=== PATIENT | female | born 1945 | race Caucasian/White ===

== ENCOUNTER 2017-10-30 16:03 | Emergency (ER) | payer MEDICARE, SELFPAY ==
[2017-10-30 16:04] VITALS: BP 194/100; PULSE 81; RESP 20; TEMP 36.2; O2SAT 99; BMI 33.2
--- NOTE | 2017-10-30 16:24 | ED.VISSUMM ---
- ER Visit Summary Date of Service: 10/30/17 Chief Complaint: Fall History of Present Illness: The patient is a 72 F who presents after falling 16 hours ago. She sustained periorbital ecchymosis. No loss of consciousness, no vision changes. No neck pain. She does not have a headache. She can move her eyes in all directions without any pain. She has no weakness. She has no confusion. Fall was mechanical, she tripped over a door tract. Physical Examination: Not appear in acute distress. Moist mucous membranes, there is periorbital ecchymosis, slight tenderness over the zygomatic arch. She is able to move her eye in all directions without any pain. She has a normal dental bite. No mandibular pain. No nasal bleeding or nasal septal hematoma. No C-spine tenderness supple neck. Regular rate and rhythm without any obvious murmurs Clear lungs bilaterally speaking in full sentences without any obvious respiratory distress Abdomen soft and nontender no guarding or rebound Moves all extremities without any difficulty or pain. Skin does not show any obvious rashes or lesions, no trauma. Alert oriented ?3 with no gross focal deficit Emergency Department Course and Treatment: Not see a reason for a CT, she did not hit her head and has no headache, has been 16 hours without any issues. She has periorbital ecchymosis without any evidence of entrapment. If there is a zygomatic fracture, there is no immediate treatment other than analgesia, and she says she has no pain unless she pushes on it. She is reassured, she understands that if she has any worsening to return however at this time she appears intact. Disposition: Discharged in stable condition Impression: Periorbital ecchymoses This note was generated with [employer] dictation software. It may contain incorrect words, spelling, and punctuation that were not noted in review of the chart prior to signing ED Disposition - Plan for ED Patient: Chief Complaint: Fall Referrals: [facility] Doctor,Out of [Primary Care Provider] -
--- NOTE | 2017-10-30 16:27 | ED.DCSUM_ITS ---
- ER Visit Summary Date of Service: 10/30/17 Chief Complaint: Fall History of Present Illness: The patient is a 72 F who presents after falling 16 hours ago. She sustained periorbital ecchymosis. No loss of consciousness, no vision changes. No neck pain. She does not have a headache. She can move her eyes in all directions without any pain. She has no weakness. She has no confusion. Fall was mechanical, she tripped over a door tract. Physical Examination: Not appear in acute distress. Moist mucous membranes, there is periorbital ecchymosis, slight tenderness over the zygomatic arch. She is able to move her eye in all directions without any pain. She has a normal dental bite. No mandibular pain. No nasal bleeding or nasal septal hematoma. No C-spine tenderness supple neck. Regular rate and rhythm without any obvious murmurs Clear lungs bilaterally speaking in full sentences without any obvious respiratory distress Abdomen soft and nontender no guarding or rebound Moves all extremities without any difficulty or pain. Skin does not show any obvious rashes or lesions, no trauma. Alert oriented ?3 with no gross focal deficit Emergency Department Course and Treatment: Not see a reason for a CT, she did not hit her head and has no headache, has been 16 hours without any issues. She has periorbital ecchymosis without any evidence of entrapment. If there is a zygomatic fracture, there is no immediate treatment other than analgesia, and she says she has no pain unless she pushes on it. She is reassured, she understands that if she has any worsening to return however at this time she appears intact. Disposition: Discharged in stable condition Impression: Periorbital ecchymoses This note was generated with [employer] dictation software. It may contain incorrect words, spelling, and punctuation that were not noted in review of the chart prior to signing ED Disposition - Plan for ED Patient: Chief Complaint: Fall Referrals: [facility] Doctor,Out of [Primary Care Provider] -
--- NOTE | 2017-10-30 16:29 | ED.DEP ---
ED Disposition - Plan for ED Patient: Disposition: Home or Assisted Living Chief Complaint: Fall Instructions: ED Mechanical Fall, ED Contusion Face Referrals: [facility] Doctor,Out of [Primary Care Provider] - 3-5 Days if not improving
[2017-10-30 16:54] VITALS: BP 131/69; PULSE 77; RESP 15; TEMP 36.4; O2SAT 98
== END 2017-10-30 16:57 | disposition home or self-care (01) ==
LOC: ED 16:48
PROVIDERS: Emergency Provider Emergency Medicine
DX: R23.3 Spontaneous ecchymoses (principal); W01.190A Fall on same level from slipping, tripping and stumbling with subsequent striking against furniture, initial encounter; Y93.9 Activity, unspecified; Y92.89 Other specified places as the place of occurrence of the external cause; Y99.9 Unspecified external cause status; I10 Essential (primary) hypertension
CPT/HCPCS: 99282

== ENCOUNTER → 2019-09-04 | Outpatient (CLI) | payer MEDICARE, SELFPAY ==
[2019-09-04 15:41] LABS: Anion Gap 4 (5-15); Chloride 104 mmol/L (98-107); Potassium 4.1 mmol/L (3.5-5.1); Sodium Level 137 mmol/L (136-145)
== END | disposition home or self-care (01) ==
LOC: MTLAB 13:18
PROVIDERS: PCP Family Medicine; Referring Provider Internal Medicine Pulmonary Disease; Visit Provider Internal Medicine Pulmonary Disease
DX: I10 Essential (primary) hypertension (principal); G47.10 Hypersomnia, unspecified
CPT/HCPCS: 36415; 80051

== ENCOUNTER → 2020-03-23 09:53 | Outpatient (CLI) | payer MEDICARE, SELFPAY ==
[2020-03-23 12:53] LABS: Anion Gap 7 (5-15); BUN 14 mg/dL (7-18); BUN/Creat Ratio 17.7 RATIO (10-20); Calcium,Total 8.9 mg/dL (8.5-10.1); Chloride 106 mmol/L (98-107); Cholesterol 219 mg/dL (200); Creatinine, Serum 0.79 mg/dL (0.55-1.02); EST Glomerular Filtration Rate 75 mL/min (>60); Est Glom Filt Rate - Afr Amer 91 mL/min (>60); Glucose 92 mg/dL (74-106); High Density Lipoprotein 57 mg/dL; Potassium 3.9 mmol/L (3.5-5.1); Sodium Level 141 mmol/L (136-145); Triglycerides 173 mg/dL; Very Low Density Lipoprotein 35 mg/dL (5-40)
== END ==
PROVIDERS: PCP Family Medicine; Visit Provider Family Medicine
DX: I10 Essential (primary) hypertension (principal)
CPT/HCPCS: 36415; 80048; 80061

== ENCOUNTER → 2020-06-17 11:12 | Outpatient (CLI) | payer MEDICARE, SELFPAY ==
[2020-06-17 15:52] LABS: CRP < 2.90 mg/L (0.0-3.0)
[2020-06-19 16:09] LABS: Endomysial Antibody IgA Negative (Negative)
[2020-06-19 20:49] LABS: Immunoglobulin A 189 mg/dL (64-422); t-Transglutaminase IgA <2 U/mL (0-3)
== END ==
PROVIDERS: PCP Family Medicine; Referring Provider Internal Medicine Gastroenterology; Visit Provider Internal Medicine Gastroenterology
DX: R19.7 Diarrhea, unspecified (principal)
CPT/HCPCS: 36415; 82784; 83516; 86140; 86255

== ENCOUNTER → 2020-09-21 10:21 | Outpatient (CLI) | payer MEDICARE, SELFPAY ==
[2020-09-21 13:03] LABS: Anion Gap 3 (5-15); BUN 17 mg/dL (7-18); BUN/Creat Ratio 18.6 RATIO (10-20); Calcium,Total 9.4 mg/dL (8.5-10.1); Chloride 106 mmol/L (98-107); Creatinine, Serum 0.92 mg/dL (0.55-1.02); EST Glomerular Filtration Rate 63 mL/min (>60); Est Glom Filt Rate - Afr Amer 77 mL/min (>60); Glucose 99 mg/dL (74-106); Potassium 4.2 mmol/L (3.5-5.1); Sodium Level 139 mmol/L (136-145)
== END ==
PROVIDERS: PCP Family Medicine; Visit Provider Family Medicine
DX: I10 Essential (primary) hypertension (principal)
CPT/HCPCS: 36415; 80048

== ENCOUNTER → 2020-09-23 10:56 | Outpatient (CLI) | payer MEDICARE, SELFPAY ==
--- NOTE | 2020-09-23 10:59 | BI_ITS ---
MAMMOGRAPHY - BILATERAL SCREENING REASON FOR EXAM: Female, 75 years old. Routine annual screening examination. PERTINENT HISTORY: Non-contributory. TECHNIQUE: Digital bilateral breast brennen (3D mammographic acquisition) in the CC and MLO projections. 2-D mediolateral oblique (MLO) and craniocaudad (CC) views of both breasts were obtained. CAD: Full Field Digital Mammography with Computer Added Detection was performed. COMPARISON: Comparison is made with prior outside examination dated 07/28/2015. FINDINGS: Breast Composition: There are scattered areas of fibroglandular density. There are no dominant masses or suspicious calcifications. Stable benign-appearing bilateral axillary lymph nodes. No other significant abnormalities are identified. There has been no significant change since the prior study. BI/SCRN MAMM (CAD)W/BRENNEN BILAT IMPRESSION: Stable bilateral screening mammogram. Yearly follow-up mammogram recommended. (A) ASSESSMENT CATEGORY: BIRADS Category 2: Benign. A letter regarding these results will be sent to the patient by the facility within 30 days. Approximately 10% of breast cancers are not detected by mammography. A normal mammogram should not delay biopsy of a clinically suspicious abnormality. [id number] Electronically Signed: Rock Davis MD at 14:45 EDT , Service support ,
--- NOTE | 2020-09-23 11:05 | BD_ITS ---
STUDY: DUAL ENERGY X-RAY ABSORPTIOMETRY / DXA REASON FOR EXAM: Female, 75 years old. Z780. The patient is postmenopausal. TECHNIQUE: Bone Mineral Density (BMD) measurements of lumbar spine and bilateral hips were obtained. COMPARISON: None. FINDINGS: Lumbar Spine (L1-L4): g/cm2 (1.385) / T-score (1.8) / Z-score (3.6) Findings are suggestive of normal bone density with a low fracture risk. Left Femur Total: g/cm2 (1.033) / T-score (0.2) / Z-score (2.0) Left Femoral Neck: g/cm2 (0.925) / T-score (-0.8) / Z-score (1.2) Right Femur Total: g/cm2 (1.011) / T-score (0.0) / Z-score (1.8) Right Femoral Neck: g/cm2 (0.924) / T-score (-0.8) / Z-score (1.2) BD/Dexa Bone Density Study IMPRESSION: The patient is considered normal as outlined below according to World [employer] Organization (WHO) criteria with a low fracture risk. Reference Information: The T-score is the number of standard deviations above or below the standard which is normal for young adults at their peak bone mineral density. The World Health Organization (WHO) interprets the T-scores as follows: Above -1 Normal bone density Between -1 and -2.5 Osteopenia Equal to / or below -2.5 Osteoporosis As a practical clinical guideline, osteopenia may be graded as follows: Mild -1 through -1.5 Moderate -1.6 through -2.0 Severe -2.1 through -2.4 The Z-score is the number of standard deviations above or below age-matched controls. A Z-score of less than -1.5 would be considered abnormal. References: 1. NIH Osteoporosis and Related Bone Diseases www osteo.org 2. International Society for Clinical Densitometry www iscd.org 3. National Osteoporosis Foundation www nof.org Electronically Signed: Rock Davis MD at 13:08 EDT , Service support ,
== END ==
PROVIDERS: PCP Family Medicine; Referring Provider Family Medicine; Visit Provider Family Medicine
DX: Z78.0 Asymptomatic menopausal state (principal); Z12.31 Encounter for screening mammogram for malignant neoplasm of breast
CPT/HCPCS: 77063; 77067; 77080

== ENCOUNTER → 2021-03-22 09:19 | Outpatient (CLI) | payer MEDICARE, SELFPAY ==
[2021-03-22 10:45] LABS: ALB/GLOB Ratio 0.9 RATIO (0.9-2.4); AST(SGOT) 20 U/L (15-37); Alanine Aminotransfer ALT/SGPT 30 U/L (13-56); Albumin, Serum 3.5 g/dL (3.2-5.0); Alkaline Phosphatase 72 U/L (45-117); Anion Gap 5 (5-15); BUN 15 mg/dL (7-18); BUN/Creat Ratio 16.9 RATIO (10-20); Calcium,Total 9.5 mg/dL (8.5-10.1); Chloride 107 mmol/L (98-107); Cholesterol 194 mg/dL (200); Creatinine, Serum 0.89 mg/dL (0.55-1.02); EST Glomerular Filtration Rate 66 mL/min (>60); Est Glom Filt Rate - Afr Amer 79 mL/min (>60); Globulin 3.8 g/dL (2.2-4.2); Glucose 96 mg/dL (74-106); High Density Lipoprotein 53 mg/dL; Potassium 3.8 mmol/L (3.5-5.1); Protein, Total 7.3 g/dL (6.4-8.2); Sodium Level 139 mmol/L (136-145); Triglycerides 137 mg/dL; Very Low Density Lipoprotein 27 mg/dL (5-40)
== END ==
PROVIDERS: PCP Family Medicine; Referring Provider Family Medicine; Visit Provider Family Medicine
DX: I10 Essential (primary) hypertension (principal)
CPT/HCPCS: 36415; 80053; 80061

== ENCOUNTER → 2021-11-22 | Outpatient (CLI) | payer MEDICARE, SELFPAY ==
[2021-11-22 15:00] LABS: Bacteria 0 SEEN /hpf (None Seen); Mucous, Urine 0 SEEN /hpf (<or=2+); Red Blood Cells-Urine 0 SEEN /hpf (0-5); Squamous Epithelial Cells - UA 0 SEEN /hpf (5-10); White Blood Cells 0 SEEN /hpf (0-5)
[2021-11-22 18:16] LABS: Color, Urine Yellow (Yellow); Glucose, Dipstick Normal (Normal); Ketone-Dipstick Negative (Negative); Leukocyte Esterase-Dipstick Negative /ul (Negative); Nitrite-Dipstick Negative (Negative); Occult Blood-Urine Negative /ul (Negative); Protein-Dipstick Negative (Negative); Specific Gravity, Urine 1.015 (1.002-1.030); Urine Bilirubin Dipstick Negative (Negative); Urine Clarity Clear (Clear); Urine Urobilinogen Normal (Normal)
== END | disposition home or self-care (01) ==
PROVIDERS: PCP Family Medicine; Visit Provider Family Medicine
DX: R35.0 Frequency of micturition (principal)
CPT/HCPCS: 81001; 87086; 87088

== ENCOUNTER → 2022-02-03 | Outpatient (CLI) | payer MEDICARE, SELFPAY | END | disposition home or self-care (01) | LOC: LABSPEC 15:16 | PROVIDERS: PCP Family Medicine; Visit Provider Family Medicine | DX: R35.0 Frequency of micturition (principal); N39.0 Urinary tract infection, site not specified | CPT/HCPCS: 81002; 87077; 87086; 87088; 87186 ==

== ENCOUNTER → 2022-03-24 | Outpatient (CLI) | payer MEDICARE, SELFPAY ==
[2022-03-24 10:52] LABS: Anion Gap 8 (5-15); BUN 17 mg/dL (7-18); BUN/Creat Ratio 22.1 RATIO (10-20); Calcium,Total 9.4 mg/dL (8.5-10.1); Chloride 106 mmol/L (98-107); Cholesterol 236 mg/dL (200); Creatinine, Serum 0.77 mg/dL (0.55-1.02); EST Glomerular Filtration Rate 77 mL/min (>60); Est Glom Filt Rate - Afr Amer 93 mL/min (>60); Glucose 97 mg/dL (74-106); High Density Lipoprotein 65 mg/dL; Potassium 3.9 mmol/L (3.5-5.1); Sodium Level 141 mmol/L (136-145); Triglycerides 162 mg/dL; Very Low Density Lipoprotein 32 mg/dL (5-40)
== END | disposition home or self-care (01) ==
LOC: MFPLAB 09:29
PROVIDERS: PCP Family Medicine; Referring Provider Family Medicine; Visit Provider Family Medicine
DX: I10 Essential (primary) hypertension (principal)
CPT/HCPCS: 36415; 80048; 80061

== ENCOUNTER → 2022-07-25 | Outpatient (CLI) | payer MEDICARE, SELFPAY ==
--- NOTE | 2022-07-25 14:40 | RAD_ITS ---
STUDY: X-RAY - RIGHT SHOULDER REASON FOR EXAM: Female, 77 years old. PAIN TECHNIQUE: 4 view(s) of the shoulder. COMPARISON: None. FINDINGS: Narrowed glenohumeral articulation. Normal acromioclavicular joint. Normal acromion. Normal humeral head and visualized proximal humerus. The soft tissue structures are unremarkable. Normal visualized pulmonary apex. RAD/Shoulder min 2 Views IMPRESSION: Degenerative changes. No acute fracture or dislocation. Electronically Signed: Darin Hall MD at 18:00 EDT ,
== END | disposition home or self-care (01) ==
LOC: MTRAD 14:34
PROVIDERS: PCP Family Medicine; Visit Provider Family Medicine
DX: M25.511 Pain in right shoulder (principal)
CPT/HCPCS: 73030

== ENCOUNTER → 2022-10-07 | Outpatient (CLI) | payer MEDICARE, SELFPAY ==
[2022-10-07 15:27] LABS: Absolute Neutrophil Count 1.9 X10^3/uL (2.0-7.7); Basophil# 0.03 X10^3/uL; Basophil% 0.6 % (0-1); Eosinophil# 0.19 X10^3/uL; Eosinophils% 3.7 % (0-5); Hematocrit 40.3 % (37-47); Lymphocyte % 50.9 % (19-41); Mean Corp Hgb Conc 32.3 g/dL (32-36); Mean Corpuscular Hgb 30.3 pg (27.0-32.0); Mean Corpuscular Volume 93.9 fL (81-99); Mean Platelet Vol. 9.6 fl (6.2-12.0); Monocyte# 0.37 X10^3/uL; Monocyte% 7.2 % (0-10); NRBC Flagged by Analyzer 0 % (0-5); Neutrophil # 1.92 X10^3/uL (2.7-7.7); Neutrophil % 37.6 % (47-70); Platelet Count 346 K/mm3 (150-450); RBC Distribution Width CV 13.1 % (11.6-14.6); RBC Distribution Width SD 44.8 fl (35.1-43.9); Red Blood Count 4.29 M/mm3 (4.2-5.4); White Blood Count 5.1 K/mm3 (4.4-11.0)
[2022-10-07 15:50] LABS: Anion Gap 6 (5-15); BUN 13 mg/dL (7-18); BUN/Creat Ratio 15.6 RATIO (10-20); Calcium,Total 8.9 mg/dL (8.5-10.1); Chloride 110 mmol/L (98-107); Cholesterol 198 mg/dL (200); Creatinine, Serum 0.83 mg/dL (0.55-1.02); EST Glomerular Filtration Rate 70 mL/min (>60); Est Glom Filt Rate - Afr Amer 85 mL/min (>60); Glucose 100 mg/dL (74-106); High Density Lipoprotein 60 mg/dL; Sodium Level 142 mmol/L (136-145); Thyroid Stim Hormone (TSH) 3.29 uIU/mL (0.358-3.74); Triglycerides 164 mg/dL; Very Low Density Lipoprotein 33 mg/dL (5-40)
== END | disposition home or self-care (01) ==
LOC: MFPLAB 12:23
PROVIDERS: PCP Family Medicine; Visit Provider Family Medicine
DX: I10 Essential (primary) hypertension (principal); R53.83 Other fatigue
CPT/HCPCS: 36415; 80048; 80061; 84443; 85025

== ENCOUNTER → 2023-04-25 | Outpatient (CLI) | payer MEDICARE, SELFPAY ==
--- OUTSIDE RECORDS SUMMARY | 2023-04-25 15:50 | XMS RPT_ITS | CCD ---
Author Name Unknown Address [address] [place] [id number] Organization [facility] Care Team Providers [facility] [place] Guide Name Role Phone Bib Epps Unavailable Unavailable Hubert Gusman MD Unavailable Medications Completed/Discontinued Medications Medication Drug Class(es) Dates Sig (Normalized) Sig (Original) DULOXETINE HCL ORAL CAPSULE DELAYED RELEASE PARTICLES (DULOXETINE HCL) (1 source) Start: 05-30-2019 take 1 tablet by mouth once daily DULOXETINE HCL ORAL CAPSULE DELAYED RELEASE PARTICLES (DULOXETINE HCL) 1 tablet daily Hubert Gusman MD lisinopril 5 mg oral tablet (1 source) Angiotensin Converting Enzyme Inhibitor Start: 05-30-2019 LISINOPRIL 5 MG TABS 1 tablet daily LISINOPRIL [id number] Hubert Gusman MD omeprazole 40 mg delayed release oral capsule (1 source) Proton Pump Inhibitor Start: 05-30-2019 OMEPRAZOLE 40 MG CPDR 1 tablet daily OMEPRAZOLE [id number] Hubert Gusman MD Problems Active Problems Problem Classification Problem Date Documented Da te Episodic/Chronic Unclassified (1 source) Unknown / UNK(Unknown) Onset: 11-19-2016 Past or Other Problems Problem Classification Problem Date Documented Da te Episodic/Chronic Other connective tissue disease (1 source) Trigger thumb, right thumb; Translations: [Trigger thumb, right thumb] Onset: 05-30-2019 05-30-2019 Episodic Unclassified (1 source) COLLARBONE DISCOMFORT,ITCHY SCALP Onset: 11-19-2016 Unclassified (1 source) Problem Results Test Name Value Interpretation Reference Range Facil ity Vital Signs Date Time Vital Sign Value Performing Clinician Facility NEGATED: Highlighted [id number] 12:31-0500 BMI (Body Mass Index) 33.07 kg/m2 Cary Helms LPN [facility] Work Phone: NEGATED: Highlighted [id number] 12:31-0500 Body weight 85.73 kg Cary Ketihins SANTANA [facility] Work Phone: NEGATED: Highlighted [id number] 12:31-0500 Body weight 86 kg Cary Helms LPN [facility] Work Phone: NEGATED: Highlighted [id number] 12:31-0500 BP Diastolic 98 mm[Hg] Cary Helms LPN [facility] Work Phone: NEGATED: Highlighted [id number] 12:31-0500 BP Diastolic 100 mm[Hg] Cary Helms LPN [facility] Work Phone: NEGATED: Highlighted [id number] 12:31-0500 BP Systolic 186 mm[Hg] Cary Helms LPN [facility] Work Phone: NEGATED: Highlighted [id number] 12:31-0500 BP Systolic 179 mm[Hg] Cary Helms LPN [facility] Work Phone: NEGATED: Highlighted [id number] 12:31-0500 Height 161.29 cm Cary Helms LPN [facility] Work Phone: NEGATED: Highlighted [id number] 12:31-0500 Height 161 cm Cary Helms LPN [facility] Work Phone: NEGATED: Highlighted [id number] 12:31-0500 Pulse (Heart Rate) 74 /min Cary Helms LPN [facility] Work Phone: Encounters Encounter Date Encounter Type Care Provider Facility Start: 05-30-2019 End: 05-30-2019 Patient encounter procedure Hubert Gusman MD Work Phone: [facility] Work Phone: Start: 11-19-2016 Ambulatory Bib Epps [facility] y:[facility] Procedures Date Procedure Procedure Detail Performing Clinician Start: 05-30-2019 End: 05-30-2019 Blood pressure outside of normal parameters - follow-up documented Hubert Gusman MD Work Phone: Start: 05-30-2019 End: 05-30-2019 BMI outside of normal parameters - no follow-up plan/reason not given Hubert Gusman MD Work Phone: Start: 05-30-2019 End: 05-30-2019 Documentation of current medications Hubert Gusman MD Work Phone: Start: 05-30-2019 End: 05-30-2019 Injection - betamethasone acetate 3 mg and betamethasone sodium phosphate 3 mg Hubert Gusman MD Work Phone: Start: 05-30-2019 End: 05-30-2019 Injection 1 tendon sheath/ligament aponeurosis Hubert Gusman MD Work Phone: Start: 05-30-2019 End: 05-30-2019 Pain assessment documented as positive - follow-up documented Hubert Gusman MD Work Phone: Start: 05-30-2019 End: 05-30-2019 Tobacco non-user Hubert Gusman MD Work Phone: NEGATED: Highlighted rowStart: 05-30-2019 End: 05-30-2019 Documentation of current medications Cary Helms LPN Plan of Treatment Date Care Activity Detail Author Start: 05-30-2019 End: 05-30-2019 Appointment Appointment [facility] Work Phone: Patient Education \[email or web address]\[email or web address]_ PtEducation [email or web address].pdf [facility] Work Phone: Payers Date Payer Category Payer Private Health Insurance [id number] Social History Date Type Detail Facility NEGATED: Highlighted rowStart: 05-30-2019 End: 05-30-[address] [facility] Work Phone: NEGATED: Highlighted rowStart: 05-30-2019 End: 05-30-2019 Details of drug misuse behavior Details of drug misuse behavior [facility] Work Phone: NEGATED: Highlighted rowStart: 05-30-2019 End: 05-30-[address] [facility] Work Phone: Clinical Note 06-25-2020 Note Date & Type Note Facility 06-25-2020 Note Patient Outreach ([facility]) YARITZA FIGUEREDO ([id number]) 1945 F Date Time Provider Department 06/25/20 NASIM DUTTON During your visit today, we recorded the following information about you: Allergies As of Date: 06/25/2020 (No Known Allergies) Date Reviewed: 10/23/2019 Reviewed by: Rima Barron LPN - Fully Assessed Order(s):SARS-COVID VACCINE 1ST DOSE APPT [[id number]] Order #: [id number] FUTURE Prescriptions as of 06/25/2020 Sig: AMLODIPINE 5 MG TABLET PREDNISONE 50 MG TABLET Take 1 tablet by mouth once d* OMEPRAZOLE 40 MG CAPSULE,BEA* Take 40 mg by mouth once amrita* CYANOCOBALAMIN (VIT B-12) 250* Take 2,500 mcg by mouth. LISINOPRIL 10 MG TABLET Take 1 tablet by mouth once d* DULOXETINE 40 MG CAPSULE,BEA* Take 60 mg by mouth. MELOXICAM 15 MG TABLET Take 1 tablet by mouth once d* Patient not taking: Reported on 06/04/2019 CETIRIZINE 10 MG TABLET Take 1 tablet by mouth once d* ETODOLAC 500 MG TABLET Take 1 tablet by mouth twice * CHOLECALCIFEROL (VITAMIN D3) * Take 5,000 Units by mouth onc* CALCIUM 500 MG TABLET Take 1 tablet by mouth once d* LORAZEPAM 1 MG TABLET Take one(1) tablet up to ever* * CYMBALTA 20 MG CAPSULE,DELAYE* Take one(1) capsule twice renetta* * MULTIVITAMIN TABLET Take one(1) tablet daily. * EXCEDRIN EXTRA STRENGTH 250 M* Take one(1)-two(2) tablet's) * * IMODIUM ADVANCED 2 MG-125 MG * Take two(2) tablets followed * * PREVACID 30 MG CAPSULE,DELAYE* Take one(1) capsule daily. Problem List As Of Date 06/25/2020 Noted Resolved HYPERLIPIDEMIA NEC/NOS [E78.5] DEPRESSIVE DISORDER NEC [F32.9] ESOPHAGEAL REFLUX [K21.9] ANXIETY STATE NOS [F41.1] 12/15/2006 SCOLIOSIS NEC [M41.80] 07/25/2007 VENTRAL HERNIA NEC [K43.9] 11/14/2007 Hypertension, essential [I10] 06/04/2019 Letter Text Encounter Status:Closed by Kijubi [employer] on 06/29/20 [facility] Summary Purpose Family History No Family History Records FoundNo Family History Records FoundThere may be information available, but it has not been provided by the sender.No Family History Records Found Advance Directives No Advanced Directives Records FoundNo Advanced Directives Records FoundThere may be information available, but it has not been provided by the sender.No Advanced Directives Records Found Chief Complaint Chief Complaint Description Start Date right thumb finger catching Preliminary chief co mplaint data, not yet signed by the author as of Instructions Instruction Description Start Date Please follow-up with Primar Care Physician or Bass Viol Repairer for treatment or adjustment of medication regarding elevated blood pressure. Assessments There may be information available, but it has not been provided by the sender. Review of System There may be information available, but it has not been provided by the sender. History of Present Illness There may be information available, but it has not been provided by the sender. Additional Source Comments INFORMATION SOURCE (unrecogn ized section and content) DATE CREATED AUTHOR AUTHOR'S SHAHANA AJ 06/14/2019 [facility] ([place] DATE CREATED AUTHOR AUTHOR'S SHAHANA ATIDA 06/04/2021 [facility] Reason for Visit (unrecogniz ed section and content) FOR RECORDS PERTAINING TO PATIENTS WHO ARE OR HAVE BEEN ENROLLED IN A CHEMICAL DEPENDENCY/SUBSTANCEABUSE PROGRAM, SOME INFORMATION MAY BE OMITTED. This clinical summary was aggregated from multiple sources. Caution should be exercised in using it in the provision of clinical care. This summary normalizes information from multiple sources, and as a consequence, information in this document may materially change the coding, format and clinical context of patient data. In addition, data may be omitted in some cases. CLINICAL DECISIONS SHOULD BE BASED ON THE PRIMARY CLINICAL RECORDS. [facility] [employer] [facility]. provides no warranty or guarantee of the accuracy or completeness of information in this document.
[2023-04-25 17:45] LABS: Absolute Lymphocyte Count 2.79 X10^3/uL (0.83-4.51); Absolute Neutrophil Count 2.6 X10^3/uL (2.0-7.7); Basophil# 0.03 X10^3/uL; Basophil% 0.5 % (0-1); Eosinophil# 0.14 X10^3/uL; Eosinophils% 2.3 % (0-5); Hematocrit 40.5 % (37-47); Hemoglobin 12.8 g/dL (12.0-15.0); Lymphocyte # 2.79 X10^3/ul (0.83-4.51); Lymphocyte % 45.7 % (19-41); Mean Corp Hgb Conc 31.6 g/dL (32-36); Mean Corpuscular Hgb 29.8 pg (27.0-32.0); Mean Corpuscular Volume 94.2 fL (81-99); Mean Platelet Vol. 9.2 fl (6.2-12.0); Monocyte# 0.49 X10^3/uL; NRBC Flagged by Analyzer 0 % (0-5); Neutrophil # 2.64 X10^3/uL (2.7-7.7); Neutrophil % 43.3 % (47-70); Platelet Count 369 K/mm3 (150-450); RBC Distribution Width CV 13.2 % (11.6-14.6); RBC Distribution Width SD 45.5 fl (35.1-43.9); White Blood Count 6.1 K/mm3 (4.4-11.0)
[2023-04-25 18:09] LABS: ALB/GLOB Ratio 1.1 RATIO (0.9-2.4); AST(SGOT) 15 U/L (15-37); Alanine Aminotransfer ALT/SGPT 23 U/L (13-56); Albumin, Serum 3.8 g/dL (3.2-5.0); Alkaline Phosphatase 59 U/L (45-117); Anion Gap 9 (5-15); BUN 12 mg/dL (7-18); BUN/Creat Ratio 16.1 RATIO (10-20); Calcium,Total 9.1 mg/dL (8.5-10.1); Chloride 107 mmol/L (98-107); Creatinine, Serum 0.74 mg/dL (0.55-1.02); EST Glomerular Filtration Rate 80 mL/min (>60); Est Glom Filt Rate - Afr Amer 97 mL/min (>60); Globulin 3.6 g/dL (2.2-4.2); Glucose 99 mg/dL (74-106); Potassium 3.3 mmol/L (3.5-5.1); Protein, Total 7.4 g/dL (6.4-8.2); Sodium Level 142 mmol/L (136-145); Thyroid Stim Hormone (TSH) 3.28 uIU/mL (0.358-3.74)
== END | disposition home or self-care (01) ==
LOC: MFPLAB 15:01
PROVIDERS: PCP Family Medicine; Visit Provider Family Medicine
DX: R42 Dizziness and giddiness (principal)
CPT/HCPCS: 36415; 80053; 84443; 85025

== ENCOUNTER 2023-11-20 10:30 | Outpatient (RCR) | payer MEDICARE, SELFPAY ==
--- NOTE | 2023-11-06 12:32 | HP.PTEVAL ---
Patient's Visit Information Visit Information Visit Information: YARITZA FIGUEREDO is a 78 year old F referred to Physical Therapy by Dr. Sarwat Lopez MD with a diagnosis of Lumbar stenosis. Date of Evaluation: 11/03/23 Physical Therapist: Satnam Weaver DPT Visit Plan Frequency: 2x /Week Duration: 3 Weeks Plan: Start with neutral spine core strengthening. She did have some + results with walking after extension. Ease into this as well. Subjective Subjective: Pt. is here today for her initial evaluation with diagnosis of lumbar stenosis, lumbar region neurogenic claudication. Pt. reports pain in her back, that was previously going down her leg, but has been a little less more recently. Pt. has a history of a fusion for her scoliosis when she was younger (non instrumental). Pt. reports feeling a little bit better over the past week or so. Less leg pain noted. He biggest complaint is increased pain with progressive walking. her leg becomes worse causing her to need to sit. No pain with sitting. Pt. has done chiro with some mild relief. Pt. is hopeful to reduce symptoms in order to get back to all work and recreational activities without limitations. Pain Lumbar spine: Pain Intensity (Out of 10): 1 Pain Intensity Range: 0 and 2 Objective Objective: POSTURE: Pt. has slight lateral shift, but this is due to her scoliosis. Slight fwrd flexed posture as well. PALPATION: Pt. has some mild tenderness at lower lumbar bilaterally. ROM: LUMBAR SPINE: flexion nil loss NE, ext min/mod loss NE, SB mod loss bilat NE, rotation mod loss bilat NE. Pt has some mild tightness with bilateral HS. NEURO: Pt. has normal sensation and normal DTR of BLEs. Pt. is able to rise on heels and toes without issues. MMT: Pt. has normal myotomal strength in BLEs. Pt. has poor core strength. GAIT: Pt. has normal step length, but has increased lateral postural sway with gait. STAIRSL: reciprocal pattern. Pt. does have increased pain with walking greater than 350' today Special Tests L/S Slump test left side: Negative L/S Slump test right side: Negative L/S Left Straight Leg Raise: Negative L/S Right Straight Leg Raise: Negative Balance/Special Test Scores Oswestry Low Back Score: 9 Goals Goal 1:: LTG: Pt. to be I with HEP. Goal Time Frame: 4-6 Weeks Goal 2:: LTG: Pt. to be able to ambulate 1000+ feet with out increase in BLE and back pain. Goal Time Frame: 4-6 Weeks Goal 3:: LTG: Pt. to have increased core strength by 1/2 grade. Goal Time Frame: 4-6 Weeks Goal 4:: LTG: Pt. to complete all ALDs without increase in symptoms. Goal Time Frame: 4-6 Weeks Rehabilitation Potential Physical Therapy Diagnosis: Pt. has signs and symptoms consistent with lumbar stenosis. Pt. has marked difficulty with walking longer distances with increased BLE and low back pain. She did have some + results with extension stretching, but want to ease into this. Rehabilitation Potential: Good Anticipated Interventions Patient/Client Instruction: Educate patient on: Condition, Plan of Care, Risk Factors and Benefits of Fitness Program For the Purpose of:: To improve decision making, To facilitate caregiver knowledge, To improve self management, To prevent re-injury and To improve ability to perform tasks related to life management Therapeutic Exercise to Include: Strength training, Power training, Postural training, Flexibilty training, Gait and locomotor training, Passive ROM, Active ROM, Dynamic Lumbar Stabilization and Vero Exercises For the Purpose of:: To decrease pain, To increase ROM, To improve nutrient delivery to tissue, To increase oxygenation perfusion, To improve muscle performance and motor function and To improve ability to perform ADL's Text: Thank you for the opportunity to evaluate your patient. For Medicare and Medicare HMO plans, please review the plan of care and approve it. It will need to be FAXED BACK to us at [phone] for Medicare purposes. For Medicare only, by signing this I certify the plan of care. Please let me know if there are questions or concerns regarding this plan of care. Physician Signature: Date:
== END 2023-11-20 19:00 | disposition home or self-care (01) ==
LOC: PT 10:30
PROVIDERS: PCP Family Medicine; Referring Provider Orthopaedic Surgery Orthopaedic Surgery of the Spine; Visit Provider Orthopaedic Surgery Orthopaedic Surgery of the Spine
DX: M48.061 Spinal stenosis, lumbar region without neurogenic claudication (principal); M41.9 Scoliosis, unspecified
CPT/HCPCS: 97110; 97161

== ENCOUNTER → 2024-02-20 | Outpatient (CLI) | payer MEDICARE, SELFPAY ==
[2024-02-20 12:07] LABS: Mucous, Urine 0 SEEN /hpf (<or=2+)
[2024-02-20 15:45] LABS: Color, Urine Yellow (Yellow); Glucose, Dipstick Normal (Normal); Ketone-Dipstick 5 mg/dl (Negative); Leukocyte Esterase-Dipstick 500 /ul (Negative); Nitrite-Dipstick Positive (Negative); Occult Blood-Urine 25 /ul (Negative); Protein-Dipstick 100 mg/dl (Negative); Urine Clarity Cloudy (Clear); Urine Urobilinogen 1 mg/dl (Normal)
[2024-02-20 15:58] LABS: Urine Bilirubin Dipstick 1 mg/dL (Negative)
[2024-02-20 15:59] LABS: Bacteria 2+ /hpf (None Seen); Squamous Epithelial Cells - UA 5-10 SEEN /hpf (5-10); White Blood Cells >100 SEEN /hpf (0-5)
[2024-02-20 16:00] LABS: Red Blood Cells-Urine 0-5 SEEN /hpf (0-5)
== END | disposition home or self-care (01) ==
LOC: MFPLAB 12:05
PROVIDERS: PCP Family Medicine; Visit Provider Family Medicine
DX: R39.9 Unspecified symptoms and signs involving the genitourinary system (principal)
CPT/HCPCS: 81001; 87077; 87086; 87088; 87186

== ENCOUNTER → 2024-05-15 | Outpatient (CLI) | payer MEDICARE, SELFPAY ==
[2024-05-15 15:39] LABS: Anion Gap 6 (5-15); BUN 12 mg/dL (7-18); BUN/Creat Ratio 15.8 RATIO (10-20); Chloride 106 mmol/L (98-107); Cholesterol 228 mg/dL (200); Creatinine, Serum 0.76 mg/dL (0.55-1.02); EST Glomerular Filtration Rate 78 mL/min (>60); Est Glom Filt Rate - Afr Amer 94 mL/min (>60); Glucose 97 mg/dL (74-106); High Density Lipoprotein 62 mg/dL; Potassium 3.8 mmol/L (3.5-5.1); Sodium Level 140 mmol/L (136-145); Triglycerides 137 mg/dL; Very Low Density Lipoprotein 27 mg/dL (5-40)
== END | disposition home or self-care (01) ==
LOC: MTLAB 11:32
PROVIDERS: PCP Family Medicine; Referring Provider Family Medicine; Visit Provider Family Medicine
DX: I10 Essential (primary) hypertension (principal)
CPT/HCPCS: 36415; 80048; 80061

== ENCOUNTER → 2024-06-27 | Outpatient (CLI) | payer MEDICARE, SELFPAY ==
--- NOTE | 2024-06-27 12:53 | BD_ITS ---
PROCEDURE: DEXA BONE DENSITY STUDY REASON FOR EXAM: F, age 79 y/o . Postmenopausal. TECHNIQUE: DEXA scan of the lumbar spine and both hips. COMPARISON: None. FINDINGS: T-SCORES Lumbar spine: Bone mineral density of the lumbar spine measures 1.337 grams/centimeter squared. T-score measures 2.6 and Z-score measures 5.3. Left hip: Total bone mineral density of the left hip measures 0.904 grams/centimeter squared. T-score measures -0.3 and Z-score measures 1.8. Bone mineral density of the left femoral neck measures 0.702 grams/centimeter squared. T-score measures -1.3 and Z-score measures 1.0. Right hip: DEXA examination of the total right hip measures 0.963 grams/centimeter sq. T-score measures 0.2 and Z-score measures 2.3. Bone mineral density of the right femoral neck measures 0.741 grams/centimeter squared. T-score measures -1.0 and Z-score measures 1.3. Patient demonstrates normal bone mineral density of the lumbar spine. Patient demonstrates osteopenia of both hips. FRAX* Results: 10 Year Probability of Fracture: Hip Fracture(1): 12% Major Osteoporotic Fracture(2): 2.5% *FRAX is a trademark of the [employer]'s [employer] for Metabolic Bone Disease, World Health Organization (WHO) Collaborating [place]. 1-The 10-year probability of fracture may be lower than reported if the patient has received treatment. 2-Major Osteoporotic Fracture: Clinical Spine, Forearm, Hip or Shoulder. The T-scores are also available for review on the [facility] PACS or by accessing the [facility] electronic medical record. BD/Dexa Bone Density Study IMPRESSION: OSTEOPENIA. Reading Location: [id number]
--- NOTE | 2024-06-27 12:53 | BI_ITS ---
PROCEDURE: SCRN MAMM (CAD)W/BRENNEN BILAT REASON FOR EXAM: F, Age 79 y/o, presents for annual screening mammogram. No family history of breast cancer. TECHNIQUE: Bilateral screening digital breast tomosynthesis with 2D and 3D images. Computer aided detection. COMPARISON: 09/23/2020 FINDINGS: There are scattered areas of fibroglandular density. No suspicious masses, areas of developing architectural distortion, or suspicious calcifications. BI/SCRN MAMM (CAD)W/BRENNEN BILAT IMPRESSION: There is no mammographic evidence of malignancy in either breast. BI-RADS 1: NEGATIVE. RECOMMEND ANNUAL MAMMOGRAPHIC SCREENING. Follow-up code: Routine Follow-up The patient will be notified of the results by letter. Reading Location: [id number]
== END | disposition home or self-care (01) ==
LOC: OPBD 12:52
PROVIDERS: PCP Family Medicine; Referring Provider Nurse Practitioner Family; Visit Provider Nurse Practitioner Family
DX: Z12.31 Encounter for screening mammogram for malignant neoplasm of breast (principal); Z78.0 Asymptomatic menopausal state; Z13.820 Encounter for screening for osteoporosis; M81.0 Age-related osteoporosis without current pathological fracture
CPT/HCPCS: 77063; 77067; 77080

== ENCOUNTER → 2025-02-10 | Outpatient (CLI) | payer MEDICARE, SELFPAY ==
[2025-02-10 21:14] LABS: AST(SGOT) 19 U/L (<=31); Alanine Aminotransfer ALT/SGPT 20 U/L (<=34); Albumin, Serum 4.3 g/dL (3.4-4.8); Alkaline Phosphatase 61 U/L (35-104); Anion Gap 13 (5-15); BUN 12 mg/dL (4-19); BUN/Creat Ratio 14.7 RATIO (10-20); Calcium,Total 9.4 mg/dL (7.6-11.0); Carbon Dioxide 24.8 mmol/L (21.0-32.0); Chloride 103 mmol/L (98-108); Cholesterol 200 mg/dL (<=200); Globulin 2.5 g/dL (2.2-4.2); Glucose 93 mg/dL (70-99); Low Density Lipoprotein Calc. 115 mg/dL; Potassium 3.7 mmol/L (3.3-5.1); Triglycerides 117 mg/dL; Very Low Density Lipoprotein 23 mg/dL (5-40); cholesterol:hdl ratio screen 3.25
== END | disposition home or self-care (01) ==
LOC: MFPLAB 15:20
PROVIDERS: PCP Family Medicine; Visit Provider Family Medicine
DX: I10 Essential (primary) hypertension (principal)
CPT/HCPCS: 36415; 80053; 80061